=== PATIENT | male | born 1945 | race Caucasian/White ===

== ENCOUNTER 2018-09-12 10:07 | Inpatient (IN) ==
--- NOTE | 2018-08-24 12:00 | Anesthesiology Consultation ---
Date of Service August 24, 2018 Assessment & Plan (1) Encounter for pre-operative examination: Plan: - Check coags AM DOS (warfarin instructions per surgeon/prescriber) - Check BSG AM DOS - Hematology= 08/30/18= hx DVT/PE (2015)- on warfarin. Subsequent U/S noting non- occlusive, likely chronic LLE DVT. Aware of upcoming LUZ and patient given Lovenox bridging instructions. - PCP= 08/25/18= Patient sent to hematology for further evaluation. Lovenox bridging done. "If they [hematology] will bridge, that will be acceptable." Chart Review Chart Review: Acceptable Risk for Surgery and Patient seen in Pre Admission Testing Teaching & Discussion Pre-Anesthesia Teaching/Discussion Notes: Instructed NPO after midnight before surgery,except medications with 15 cc of water. Medication instructions provided according to the PAT guidelines. History Surgery Operation Date: 09/12/18 08:15 Proposed Procedures p Left Anterior Total Hip Arthroplasty - Bill Salamanca DO Height/Weight Height: 5 ft 10 in Weight: 92 kg Allergies Allergy/AdvReac Type Severity Reaction Status Date / Time No Known Allergies Allergy Verified 08/11/18 15:47 Medications Home Medications Medication Instructions Recorded Confirmed Last Taken C-Zn-K.ginseng-miller [id number] 1 tab PO QAM 08/11/18 08/11/18 Unknown [Immune Support Complex] insulin glargine [Lantus Solostar 14 unit SUBCUT QPM 08/11/18 08/11/18 Unknown U-100 Insulin] lactobacillus combination no.4 1 tab PO QAM 08/11/18 08/11/18 Unknown [Probiotic] metformin 500 mg PO QID 08/11/18 08/11/18 Unknown multivitamin with minerals 1 tab PO QAM 08/11/18 08/11/18 Unknown omega 3,6,9 combination no.7 1 tab PO QAM 08/11/18 08/11/18 Unknown rosuvastatin 5 mg PO QPM 08/11/18 08/11/18 Unknown warfarin 2.5 - 5 mg PO DAILY 08/11/18 08/11/18 Unknown Past Medical History Medical History DVT (deep venous thrombosis) 2016- ACUTE LLE DVT; NOW WITH LIKELY CHRONIC LLE DVT- ON WARFARIN Diabetes mellitus, type 2 NIDDM Osteoarthritis Pulmonary embolism 2016- ON WARFARIN Past Surgical History Surgical History Cancer BCC S/P EXCISION(FACE/ARM) History of cholecystectomy History of tonsillectomy History of tooth extraction WISDOM TEETH History of total hip arthroplasty RIGHT Past Anesthesia History No Hx of Anesthesia Complications and No Family Hx of Anesthesia Complications History of PONV No Motion Sickness Screening History of Motion Sickness: No Social History Smoking Status: Former smoker Do You Dip or Chew Tobacco: No Smoking End Date: QUIT 35+ YEARS AGO; HX 1 PPD X 15 YEARS Hx Alcohol Use: Yes Alcohol type: beer alcohol intake frequency: a few times a month Hx Substance Use: No Exercise / Class Metabolic Activity II 4-5 Yardwork/Stairs/Walk up hill Review of Systems Patient denies chest pain, shortness of breath, dyspnea on exertion, reflux, cough, wheezing, palpitations. Physical Exam Vital Signs VITALS BP 133/80 P 77 TEMP 98.0 SP02 94%RA RESP 18 PHYSICAL Full neck and c-spine range of motion. Full TMJ range of motion. TMD 4 finger breaths Mallampati Score 3 Dentition: missing molars, permanent implants on molars Lungs: clear throughout to auscultation Cardiac: regular rate and rhythm, no murmurs noted Spine: normal Carotid arteries: negative bruit Extremities: no edema Testing Electrocardiogram Date: 08/24/18 Findings: + NSR @ (68) Chest X-Ray Date: 08/24/18 Subtle peripheral opacity within left midlung zone, possibly artifactual. This is of doubtful acute clinical significance. A three-month follow-up chest x-ray is recommended (PCP made aware/report sent for their review) Echocardiogram Date: 12/15/15 EF 58%. No RWMA. Borderline LVH. Aortic sclerosis. Laboratory Results 08/24/18 12:35 08/24/18 12:35 Blood Type O Positive 08/24/18 12:35 Antibody Screen NEGATIVE 08/24/18 12:35 PT 18.4 Seconds (9.0-12.0) H 08/24/18 12:35 INR 1.9 (0.9-1.1) H 08/24/18 12:35 APTT 32.3 Seconds (21.0-31.0) H 08/24/18 12:35 Hemoglobin A1c 7.3 % (4.5-5.6) H 08/24/18 12:35 Urine Color Yellow 08/24/18 12:35 Urine Appearance Clear (Clear) 08/24/18 12:35 Urine pH 5.0 (4.5-7.5) 08/24/18 12:35 Ur Specific [place] 1.022 (1.000-1.030) 08/24/18 12:35 Urine Protein Negative (Negative) 08/24/18 12:35 Urine Glucose (UA) Negative (Negative) 08/24/18 12:35 Urine Ketones Negative (Negative) 08/24/18 12:35 Urine Nitrite Negative (Negative) 08/24/18 12:35 Ur Leukocyte Esterase Negative (Negative) 08/24/18 12:35 Urine WBC (Auto) 1-5 /hpf (0-5) 08/24/18 12:35 Urine RBC (Auto) 0-4 /hpf (0-4) 08/24/18 12:35 U Hyaline Cast (Auto) 0 /lpf (0-5) 08/24/18 12:35 U Epithel Cells (Auto) 0-5 /lpf (0-5) 08/24/18 12:35 Urine Bacteria (Auto) Negative (Negative) 08/24/18 12:35 08/24/18 12:35 Urine Culture - Final Urine,Clean Catch No growth - less than 1,000 colonies/mL.
--- NOTE | 2018-08-24 12:02 | PAT Medication Instructions ---
Medication Instructions Date of Service August 24, 2018 Home Medications C-Zn-K.ginseng-miller [id number] 1 tab PO QAM insulin glargine [Lantus Solostar 14 unit SUBCUT QPM lactobacillus combination no.4 1 tab PO QAM metformin 500 mg PO QID multivitamin with minerals 1 tab PO QAM omega 3,6,9 combination no.7 1 tab PO QAM rosuvastatin 5 mg PO QPM warfarin 2.5 - 5 mg PO DAILY ASK your prescriber and surgeon warfarin 2.5 - 5 mg PO DAILY STOP taking 2 weeks before surgery (or as soon as possible if surgery is within 2 weeks) C-Zn-K.ginseng-miller [id number] 1 tab PO QAM omega 3,6,9 combination no.7 1 tab PO QAM DO NOT take the morning of surgery lactobacillus combination no.4 1 tab PO QAM metformin 500 mg PO QID multivitamin with minerals 1 tab PO QAM Take evening before surgery insulin glargine [Lantus Solostar 14 unit SUBCUT QPM metformin 500 mg PO QID rosuvastatin 5 mg PO QPM Other Notes If you have any questions please call us at [phone] or [phone] or [phone] or [phone]
[2018-08-24 12:55] LABS: Basophils # (auto) 0.02 K/uL (0-0.2); Basophils % (auto) 0.3 %; Eosinophils # (auto) 0.06 K/uL (0-0.5); Eosinophils % (auto) 0.8 %; Hematocrit (blood only) 43.9 % (42-52); Hemoglobin 15.1 g/dL (14.0-18.0); Immature Granulocytes # (auto) 0.02 K/uL (0.00-0.02); Immature Granulocytes % (auto) 0.3 %; Lymphocytes % (auto) 27.8 %; Mean Corpuscular Hgb Conc 34.4 g/dL (32-36); Mean Corpuscular Volume 87.5 fL (80-100); Mean Platelet Volume 10.1 fL (7.4-10.4); Monocytes # (auto) 0.54 K/uL (0.11-0.59); Monocytes % (auto) 6.8 %; Neutrophils # (auto) 5.06 K/uL (1.4-6.5); Platelet Count 260 K/uL (130-400); RDW Coefficient of Variation 13.6 % (11.5-14.5); RDW Standard Deviation 43.1 fL (36.4-46.3); Red Blood Count 5.02 M/uL (4.7-6.1)
[2018-08-24 13:03] LABS: INR 1.9 (0.9-1.1); Partial Thromboplastin Ratio 1.2; Partial Thromboplastin Time 32.3 Seconds (21.0-31.0); Prothrombin Time 18.4 Seconds (9.0-12.0)
[2018-08-24 13:04] LABS: Appearance Urine Clear (Clear); Bacteria Urine Automated Negative (Negative); Bilirubin Urine Negative (Negative); Blood Urine Trace (Negative); Cast Urine Automated 0 /lpf (0-5); Color Urine Yellow; Epithelial Cell Urine Auto 0-5 /lpf (0-5); Glucose Urine UA Negative (Negative); Ketones Urine Negative (Negative); Leukocyte Esterase Urine Negative (Negative); Nitrite Urine Negative (Negative); Protein Urine Negative (Negative); RBC Urine Automated 0-4 /hpf (0-4); Specific Gravity Urine 1.022 (1.000-1.030); Urobilinogen Urine Negative (Negative)
--- NOTE | 2018-08-24 13:04 | XRay Report ---
XR chest Pre-admission PA/Lat CLINICAL HISTORY: Preoperative chest COMPARISON STUDY: No previous studies for comparison. FINDINGS: The cardiac and mediastinal contours are normal. There is no evidence of focal pulmonary co nsolidation. There is no evidence of failure. No pleural effusions are visualized.[ A vague feeding o pacity within the left midlung zone laterally, is likely extrapleural or artifact from overlying soft tissues. This is of doubtful acute clinical significance. IMPRESSION: Subtle peripheral opacity within left midlung zone, possibly artifactual. This is of doub tful acute clinical significance. A three-month follow-up chest x-ray is recommended. Electronically signed by: Wale Ross M.D. 08/24/2018 1:03 PM
[2018-08-24 13:20] LABS: Estimated Average Glucose 163 mg/dl; Hemoglobin A1C 7.3 % (4.5-5.6)
[2018-08-24 14:32] LABS: Albumin Level 3.7 gm/dl (3.4-5.0); Calcium 8.9 mg/dl (8.5-10.1); Creatinine Clr Calc Pharmacy 83.1 ml/min; Est GFR (African American) 95.4; Est GFR (Non-African American) 82.3; Potassium 4.4 mmol/L (3.5-5.1)
--- NOTE | 2018-09-11 22:43 | History & Physical Report ---
Date of Service September 11, 2018 Assessment & Plan (1) Degenerative joint disease (DJD) of hip: I have indicated the patient for left anterior total hip replacement. The risks, benefits and complications of surgery were explained to the patient which include but not limited to infection, acute blood loss, DVT/PE, injury to nerves, vessels, bone, soft tissue, arthrofibrosis, chronic pain, failure of the prosthesis, hip dislocation, leg length discrepancy, need for additional surgery, cardiac and pulmonary events and . The patient wished to proceed with surgery and informed consent was obtained at this time. We will plan for bridging lovenox to coumadin with a goal INR 2.0-2.5 post-operatively for DVT prophylaxis. Upon discharge the patient will be discharged home with home health services. Appropriate clearances by PCP were obtained. History of Present Illness Chief Complaint: Left hip pain/DJD Primary Care Provider: Meet Dubon The patient is a 73 year old male who presents with complaints of severe left hip pain and DJD. The patient has failed outpatient conservative treatments to this point which included NSAIDs, IA corticosteroid injection, home exercise/walking program. The patient's pain and limited function have progressed to the point where they severely hinder their activities of daily living and they no longer tolerate exercise programs. They are requesting to proceed with total hip replacement surgery. Allergies Allergy/AdvReac Type Severity Reaction Status Date / Time No Known Allergies Allergy Verified 09/12/18 10:38 Home Medications Home Medications Medication Instructions Recorded Confirmed Type C-Zn-K.ginseng-miller hips-[id number] 1 tab PO QAM 08/11/18 09/12/18 History [Immune Support Complex] insulin glargine [Lantus Solostar 14 unit SUBCUT QPM 08/11/18 09/12/18 History U-100 Insulin] lactobacillus combination no.4 1 tab PO QAM 08/11/18 09/12/18 History [Probiotic] metformin 500 mg PO QID 08/11/18 09/12/18 History multivitamin with minerals 1 tab PO QAM 08/11/18 09/12/18 History omega 3,6,9 combination no.7 1 tab PO QAM 08/11/18 09/12/18 History rosuvastatin 5 mg PO QPM 08/11/18 09/12/18 History warfarin 2.5 - 5 mg PO DAILY 08/11/18 09/12/18 History enoxaparin [Lovenox] 90 mg SUBCUT Q12H 09/12/18 09/12/18 History Past Med/Surg History Medical History DVT (deep venous thrombosis) 2016- ACUTE LLE DVT; NOW WITH LIKELY CHRONIC LLE DVT- ON WARFARIN Diabetes mellitus, type 2 NIDDM Osteoarthritis Pulmonary embolism 2016- ON WARFARIN Surgical History Cancer BCC S/P EXCISION(FACE/ARM) History of cholecystectomy History of tonsillectomy History of tooth extraction WISDOM TEETH History of total hip arthroplasty RIGHT Social History Preferred Language: [place] Communication Ability: Effective Crime Scene Photographer Required: No Beliefs That Will Affect Care: None Current Living Situation: Spouse Other Information That Helps Us Care for You: No Feels Safe at Home: Yes Safety Concerns: Feels Safe At This Time Smoking Status: Former smoker Hx Alcohol Use: Yes Hx Substance Use: No Review of Systems All systems reviewed & are unremarkable except as noted in HPI & below Physical Exam Physical Exam: LLE NVSI +EHL/FHL/TA/GS SILT grossly, +2 DP pulse, compartments soft NT, painful limited ROM Constitutional: WD/WN, vitals as above Eyes: PERRL, conjunctivae normal, anicteric sclerae ENMT: external ear and nose normal, oropharynx normal Neck: trachea midline, no thyromegaly Respiratory: normal respiratory effort, lungs clear to auscultation Cardiovascular: RRR, no murmur, no edema Gastrointestinal (Abdomen): normal bowel sounds, soft, nontender, no hepatosplenomegaly Musculoskeletal: no cyanosis or clubbing, extremities motor strength 5/5 Skin: no rashes, warm and dry Neurologic: patellar DTR's 2+ bilat, sensation intact Psychiatric: A+Ox3, euthymic affect Lymphatic: no cervical or axillary lymphadenopathy Results & Data Diagnostic Findings Multiple views of the hip demonstrates severe DJD with complete loss of the joint space. +osteophytes, +sclerosis, +subchondral cysts.
[~2018-09-12 10:07] MED LIST: ACETAMINOPHEN 500 MG TAB PO SCH; BUPIVACAINE 0.5 % 5 MG/1 ML PF 10ML VIAL ONE; CEFAZOLIN 2000MG 2,000 MG/15 ML SYR IV SCH; CeleBREX 200 MG CAP PO SCH; FAMOTIDINE 20 MG TAB PO SCH; LR 500ML BOLUS, THEN 15ML/HR IV SCH; METOCLOPRAMIDE HCL 10 MG TABLET PO SCH; ROPIVACAINE 0.5% HCL/PF 150 MG, BUPIVACAINE 0.5% MPF 30 ML, EPINEPHrine 30MG/30ML (OR U... INFIL SCH; TRANEXAMIC ACID 1,000 MG **IV Intra-op IV SCH; TRANEXAMIC ACID 1,000 MG **IV Pre-op IV SCH; dexAMETHasone 4 MG TAB PO SCH
[2018-09-12 11:01] LABS: Partial Thromboplastin Time 26.5 Seconds (21.0-31.0); Prothrombin Time 10.5 Seconds (9.0-12.0)
[2018-09-12] MEDS ORDERED: ePHEDrine sulfate 50 MG/ML AMP IV PRN (11:12)
[2018-09-12] MEDS ORDERED: ONDANSETRON INJ 2 MG/ML 2 ML VIAL IV PRN ×2 (11:12→19:02)
[2018-09-12] MEDS ORDERED: fentaNYL citrate 100 MCG/2 ML VIAL IV PRN (11:12)
[2018-09-12] MEDS ORDERED: ATROPINE SULFATE 0.1 MG/ML 10ML SYR IV PRN (11:12)
[2018-09-12] MEDS ORDERED: PROMETHAZINE HCL 6.25 MG in SODIUM CHLORIDE 0.9% 50 ML IV PRN (11:12)
[2018-09-12] MEDS ORDERED: MIDAZOLAM HCL 1 MG/ML 2ML VIAL ONE (11:31)
--- NOTE | 2018-09-12 12:08 | History & Physical Bridge Note ---
Date of Service September 12, 2018 History & Physical Bridge Note I have examined the patient, reviewed the History & Physical and in the interval since the performance of the History & Physical I have noted the following changes of clinical significance: no changes noted
[2018-09-12] MEDS ORDERED: BACITRACIN INJ 50,000 UNIT VIAL ONE (13:14)
[2018-09-12] MEDS ORDERED: ORTHO JOINT ANESTHETIC ONE (13:14)
[2018-09-12] MEDS ORDERED: POVIDONE-IODINE OP SOLN 30 ML BTL ONE (13:14)
[2018-09-12] MEDS ORDERED: KETAMINE HCL INJ 50 MG/ML 10 ML VIAL ONE (15:07)
[2018-09-12] MEDS ORDERED: ONDANSETRON INJ 2 MG/ML 2 ML VIAL ONE (15:08)
[2018-09-12] MEDS ORDERED: GLYCOPYRROLATE 0.2 MG/ML VIAL ONE (15:08)
[2018-09-12] MEDS ORDERED: PROPOFOL IV EMULSION 10 MG/ML 20 ML VIAL IV ONE ×3 (15:08→17:33)
[2018-09-12] MEDS ORDERED: DEXAMETHASONE SOD INJ 4 MG/ML VIAL ONE (15:08)
[2018-09-12] MEDS ORDERED: LIDOCAINE HCL 2% 2 ML VIAL/AMP(20MG/ML) INFIL ONE (15:08)
--- NOTE | 2018-09-12 17:52 | Post Operative Brief Note ---
Immediate Post Op Note v1 Date of Surgery September 12, 2018 Pre & Post Diagnosis Operation Date: 09/12/18 12:25 Pre-Op Diagnosis: Left Hip Osteoarthritis Post-Op Diagnosis: Left Hip Osteoarthritis Procedure Operation Date: 09/12/18 12:25 Actual Procedures p Left Anterior Total Hip Arthroplasty(Left) - Bill Salamanca DO Surgeon Bill Salamanca DO Aviation Maintenance Instructor Akira Blank Estimated Blood Loss 180 Findings Consistent with Post-Op Diagnosis Fluids 1200 cc Specimens femoral head Drains Hemovac Drain Anesthesia Type Spinal MAC Complications none Disposition Disposition: Recovery Room Overlapping Procedure I was present for: the critical portions of procedure. I was immediately available: during the entire case. Back up surgeon: was not required during procedure.
--- NOTE | 2018-09-12 18:24 | Operative Report ---
Post Operative Report Pre & Post Diagnosis Operation Date: 09/12/18 12:25 Pre-Op Diagnosis: Left Hip Osteoarthritis Post-Op Diagnosis: Left Hip Osteoarthritis Procedure Operation Date: 09/12/18 12:25 Actual Procedures p Left Anterior Total Hip Arthroplasty(Left) - Bill Salamanca DO Surgeon Bill Salamanca DO Fairing Man Akira Blank Estimated Blood Loss 180 Findings Consistent with Post-Op Diagnosis Fluids 1200 cc Specimens Femoral head Anesthesia Type Spinal MAC Complications none Disposition Disposition: Recovery Room Indications The patient is a 73-year-old male who presents with severe progressive left hip DJD who has failed outpatient conservative treatments. I indicated the patient for a anterior total hip replacement and the risks and benefits were explained in detail which include but not limited to infection, bleeding, blood clot, damage to surrounding bone, nerves, vessels, soft tissue, hip dislocation, failure of the prosthesis, leg length discrepancy, need for additional surgery and . The patient agreed to proceed with replacement of the hip and informed consent was obtained. Appropriate clearances were obtained. Description of Procedure COMPONENTS USED: [employer]angel [employer] NephRatherGathe[employer] hip system: Acetabulum size 52, femur size 8 high offset, femoral head 36-3, liner 36 x 52, acetabular screw 25 mm. DESCRIPTION OF PROCEDURE: Following satisfactory spinal anesthesia, the patient was placed supine on the OR table. The right leg was placed in the well leg george and the left leg in the traction device. The left leg was prepared with ChloraPrep and draped sterilely. Following a surgical time-out, an anterior approach in the interval between the sartorius and tensor muscles was completed. Circumflex femoral vessels were identified, tied and ligated. The anterior capsular fat pad was removed and the capsulotomy was performed revealing the arthritic femoral neck and head. A femoral neck cut was made with reciprocating saw and the bone fragments removed. The acetabular self-retraining retractor was placed. Acetabular reaming was completed under fluoroscopic guidance, a 52 shell was impacted into an anatomic position and secured with a dome screw. Local anesthetic was placed and following irrigation, the polyethylene liner was placed. The femur was placed into position of external rotation, extension and adduction. Femoral canal was prepared up to the size 8 high offset. Trial reduction with a -3 neck length head showed good soft tissue tension, leg lengths restored, and good fit and fill of the proximal canal using fluoroscopic landmarks. The hip was dislocated. The trial component was removed. The final implant was placed. The hip was irrigated with sterile saline solution and reduced. A Betadine soak was performed. After 3 minutes, the hip was once more irrigated with copious sterile saline solution with bacitracin. Mary Lou-incisional soft tissue was injected utilizing [place] Orthomix which includes a combination of Ropivicaine 0.5% 150mg, Bupivicaine 0.5%/Epinephrine 1:200,000 30ml, Toradol 30mg, Dexamethasone 4mg, Ketamine 10mg, Clonidine 100mcg and NSS 30ml solution. The capsule was then closed with 1-0 Vicryl interrupted figure of eight sutures. The fascia was closed with a running suture of 0 - V-loc, the subcutaneous tissues with 2-0 Vicryl and the skin with a running subcuticular stitch of 3-0 V-Loc. Dermabond prineo and a dry dressing, Prevena incisional vac were applied. The patient tolerated the procedure well and was transported to PACU in stable condition. Due to the complex nature of the procedure, the entire surgery was performed with the operational assistance of Akira Blank PA-C. The compliance assistant, under direct supervision, was involved in the actual performance of all aspects of the surgical procedure including patient positioning, hemostasis, tissue retraction, instrument management and wound closure. I attest to the content of the Intraoperative Record and any orders documented therein. Any exceptions are noted below.
[2018-09-12] MEDS ORDERED: METOCLOPRAMIDE HCL INJ 5 MG/ML 2 ML VIAL IV PRN (19:02)
[2018-09-12] MEDS ORDERED: BISACODYL 10 MG SUPP PR PRN (19:02)
[2018-09-12] MEDS ORDERED: MAGNESIUM HYDROXIDE SUSP 30 ML UDC PO PRN (19:02)
[2018-09-12] MEDS ORDERED: NALOXONE HCL 0.4 MG/1 ML VIAL/CARP IV PRN (19:02)
[2018-09-12] MEDS ORDERED: HYDROmorphone INJ 0.5 MG/0.5 ML SYR IV PRN (19:02)
--- NOTE | 2018-09-12 19:02 | Anesthesiology Progress Note ---
Date of Service September 12, 2018 Anesthesia Post Procedure Vital Signs Vital Signs: Temp Pulse Pulse Resp BP BP Pulse Ox 09/12/18 18:45 36.5 C 63 17 117/65 98 09/12/18 18:35 36.5 C 71 17 113/70 95 09/12/18 18:25 78 17 120/70 99 09/12/18 18:16 36.2 C L 83 16 110/69 94 09/12/18 15:17 80 16 128/55 L 96 09/12/18 10:48 36.8 C 76 22 158/85 H 94 Pain Intensity Left Hip: Pain Intensity: 0 Notes Mental Status: alert / awake / arousable Patient Amnestic to Procedure: Yes Nausea / Vomiting: adequately controlled Pain: adequately controlled Airway Patency, RR, SpO2: stable & adequate BP & HR: stable & adequate Hydration State: stable & adequate Neuraxial Anesthesia: was administered and sensory block is resolving Anesthetic Complications: no major complications apparent and Pt Satisfied with anesthetic care
--- NOTE | 2018-09-12 19:08 | XRay Report ---
SINGLE VIEW PELVIS; SINGLE VIEW LEFT HIP CLINICAL HISTORY: Postoperative examination. FINDINGS: An AP portable view of the hips and pelvis with a crosstable lateral portable view of the l eft hip are obtained. A bipolar left hip arthroplasty is in near-anatomic alignment. A single cortica l lag screw transfixes the acetabular cup. No acute fracture is identified. There are expected postop erative changes overlying the left hip including subcutaneous gas, a surgical drain, and soft tissue swelling. A bipolar arthroplasty is also seen in the right hip. Advanced atherosclerotic calcificatio n is noted in the femoral arteries. IMPRESSION: Expected postoperative findings status post left hip arthroplasty. No acute fracture is s een. Electronically signed by: Tyson Hathaway M.D. 09/12/2018 7:07 PM
--- NOTE | 2018-09-12 19:11 | Fluoroscopy Report ---
INTRAOPERATIVE RADIOGRAPHS CLINICAL HISTORY: Left hip arthroplasty. Fluoroscopy time: 93 seconds. FINDINGS: 2 spot fluoroscopic views from a left hip arthroplasty procedure are presented. A bipolar l eft hip arthroplasty has been placed and is in near anatomic alignment. There is no evidence of fract ure on these fluoroscopic views. A right hip arthroplasty is also noted. IMPRESSION: Intraoperative images from a left hip arthroplasty procedure as above. Electronically signed by: Tyson Hathaway M.D. 09/12/2018 7:10 PM
--- NOTE | 2018-09-12 19:39 | Orthopedic Progress Note ---
Date of Service September 12, 2018 Assessment & Plan (1) Degenerative joint disease (DJD) of hip: s/p L anterior LUZ -ancef x 24 -DVT ppx - patient with chronic LLE DVT - bridge lovenox --> coumadin, goal INR 2.0-2.5, SCD RLE/TEDS -WBAT LLE -PT/OT -Glycemic mgnt consult -PO XR demonstrates well aligned well fixed orthopedic prosthesis without fracture/dislocation -am labs -DC planning Home with Subjective Post Operative Progress Note Patient seen in PACU in bed, comfortable, denies complaints, pain well controlled, no acute issues. +spinal anesthesia Physical Exam Vital Signs (Past 24 Hours): Last Vital Signs Temp 36.4 C L 09/12/18 19:32 Pulse 61 09/12/18 19:32 Resp 16 09/12/18 19:32 BP 127/69 09/12/18 19:32 Pulse Ox 96 09/12/18 19:32 Physical Exam: Limited secondary to spinal anesthesia, +2 DP pulse, compar tments soft NT, dressing CDI Constitutional: WD/WN, vitals as above Eyes: PERRL, conjunctivae normal, anicteric sclerae ENMT: external ear and nose normal, oropharynx normal Neck: trachea midline, no thyromegaly Respiratory: normal respiratory effort, lungs clear to auscultation Cardiovascular: RRR, no murmur, no edema Gastrointestinal (Abdomen): normal bowel sounds, soft, nontender, no hepatosplenomegaly Skin: no rashes, warm and dry Psychiatric: A+Ox3, euthymic affect Lymphatic: no cervical or axillary lymphadenopathy
[2018-09-12] MEDS ORDERED: PHARMACY GLYCEMIC MGMT CONSULT PRN (19:47)
[2018-09-12] MEDS: SODIUM CHLORIDE 0.9% 1000ML 1,000 ML IV SCH (20:50)
[2018-09-12] MEDS: ROSUVASTATIN CALCIUM 5 MG TAB PO SCH (20:51)
[2018-09-12] MEDS: DOCUSATE SODIUM 100 MG CAP PO SCH (20:51)
[2018-09-12] MEDS: SENNA 8.6 MG TAB PO SCH (20:51)
[2018-09-12] MEDS: ACETAMINOPHEN 500 MG TAB PO SCH (20:52)
[2018-09-12] MEDS ORDERED: METFORMIN HCL 500 MG TAB PO SCH (21:00)
[2018-09-12] MEDS ORDERED: INSULIN GLARGINE SOLOSTAR 100 UNITS/ML 3 ML PEN SQ SCH (21:30)
[2018-09-12] MEDS: INSULIN ASPART 100 UNITS/ML 3 ML PEN SC SCH ×2 (21:38→23:59)
[2018-09-12] MEDS: OXYCODONE HCL IR 5 MG TAB (IMMEDIATE RELEASE) PO PRN (21:42)
[2018-09-12] MEDS ORDERED: COUGH DROP (SUGAR FREE) LOZ 24 LOZ/1 BOX BUCCAL ONE (21:42)
[2018-09-12] MEDS ORDERED: COUGH DROP (SUGAR FREE) LOZ 24 LOZ/1 BOX BUCCAL PRN (21:47)
[2018-09-12] MEDS ORDERED: WARFARIN SOD 5 MG TAB PO ONE (22:00)
[2018-09-12] MEDS ORDERED: CEFAZOLIN 2000MG 2,000 MG/15 ML SYR IV SCH (22:00)
[2018-09-13] MEDS: OXYCODONE HCL IR 5 MG TAB (IMMEDIATE RELEASE) PO PRN ×4 (04:16→21:37)
[2018-09-13] MEDS: INSULIN ASPART 100 UNITS/ML 3 ML PEN SC SCH ×5 (04:19→21:28)
[2018-09-13] MEDS: ACETAMINOPHEN 500 MG TAB PO SCH ×3 (05:27→21:31)
[2018-09-13 05:56] LABS: Hematocrit (blood only) 36.2 % (42-52); Immature Granulocytes # (auto) 0.04 K/uL (0.00-0.02); Immature Granulocytes % (auto) 0.2 %; Lymphocytes # (auto) 1.26 K/uL (1.2-3.4); Lymphocytes % (auto) 7.7 %; Mean Corpuscular Hgb Conc 33.1 g/dL (32-36); Mean Corpuscular Volume 88.5 fL (80-100); Mean Platelet Volume 10.2 fL (7.4-10.4); Monocytes # (auto) 1.21 K/uL (0.11-0.59); Monocytes % (auto) 7.4 %; Neutrophils # (auto) 13.85 K/uL (1.4-6.5); Neutrophils % (auto) 84.7 %; Platelet Count 220 K/uL (130-400); RDW Coefficient of Variation 13.7 % (11.5-14.5); RDW Standard Deviation 43.9 fL (36.4-46.3); Red Blood Count 4.09 M/uL (4.7-6.1); White Blood Count 16.36 K/uL (4.8-10.8)
[2018-09-13 06:07] LABS: INR 1.1 (0.9-1.1); Prothrombin Time 11.4 Seconds (9.0-12.0)
[2018-09-13 06:28] LABS: BUN Creatinine Ratio 16.5 (10-20); Calcium 8.2 mg/dl (8.5-10.1); Creatinine Clr Calc Pharmacy 103.3 ml/min; Est GFR (Non-African American) 92.3; Potassium 3.9 mmol/L (3.5-5.1)
[2018-09-13] MEDS: DOCUSATE SODIUM 100 MG CAP PO SCH ×2 (08:18→20:31)
[2018-09-13] MEDS: MULTIVITAMIN TAB PO SCH (08:18)
--- NOTE | 2018-09-13 08:31 | Anesthesiology Progress Note ---
Date of Service September 13, 2018 Anesthesia Post Procedure Vital Signs Vital Signs: Temp Pulse Pulse Pulse Resp BP BP 09/13/18 07:30 36.4 C L 66 16 111/59 L 09/13/18 04:05 36.5 C 62 16 124/67 09/12/18 23:25 36.5 C 73 18 133/67 09/12/18 22:00 36.7 C 64 16 129/71 09/12/18 21:00 36.4 C L 88 16 134/74 09/12/18 20:00 36.5 C 74 16 135/78 09/12/18 19:32 36.4 C L 61 16 127/69 09/12/18 19:00 36.4 C L 64 16 129/76 09/12/18 18:45 36.5 C 63 17 117/65 09/12/18 18:35 36.5 C 71 17 113/70 09/12/18 18:25 78 17 120/70 09/12/18 18:16 36.2 C L 83 16 110/69 09/12/18 15:17 80 16 128/55 L 09/12/18 10:48 36.8 C 76 22 158/85 H Pulse Ox 09/13/18 07:30 95 09/13/18 04:05 96 09/12/18 23:25 94 09/12/18 22:00 92 09/12/18 21:00 92 09/12/18 20:00 98 09/12/18 19:32 96 09/12/18 19:00 94 09/12/18 18:45 98 09/12/18 18:35 95 09/12/18 18:25 99 09/12/18 18:16 94 09/12/18 15:17 96 09/12/18 10:48 94 Pain Intensity Left Hip: Pain Intensity: 0 Notes Mental Status: alert / awake / arousable and participated in evaluation Patient Amnestic to Procedure: Yes Nausea / Vomiting: adequately controlled Pain: adequately controlled Airway Patency, RR, SpO2: stable & adequate BP & HR: stable & adequate Hydration State: stable & adequate Neuraxial Anesthesia: was administered and sensory block resolved Anesthetic Complications: no major complications apparent and Pt Satisfied with anesthetic care
--- NOTE | 2018-09-13 08:53 | Orthopedic Progress Note ---
Date of Service September 13, 2018 Assessment & Plan (1) Degenerative joint disease (DJD) of hip: s/p L anterior LUZ POD#1 -ancef x 24 -DVT ppx - patient with chronic LLE DVT - bridge lovenox 90 --> coumadin, goal INR 2.0-2.5, SCD RLE/TEDS -INR 1.1 -WBAT LLE -PT/OT -Glycemic mgnt consult -PO XR demonstrates well aligned well fixed orthopedic prosthesis without fracture/dislocation -am labs - hgb 12.0, post op anemia secondary to surgical blood loss and dilution effect. Patient asymptomatic, continue to monitor. -DC planning Home with HH Subjective Post Operative Progress Note Patient seen in a.m. laying in bed, comfortable, denies complaints, pain well controlled, no acute issues overnight. Denies CP, SOB, N/V/D, lightheaded or dizziness. Physical Exam Vital Signs (Past 24 Hours): Last Vital Signs Temp 36.4 C L 09/13/18 07:30 Pulse 66 09/13/18 07:30 Resp 16 09/13/18 07:30 BP 111/59 L 09/13/18 07:30 Pulse Ox 95 09/13/18 07:30 Physical Exam: LLE NVSI +EHL/FHL/TA/GS SILT grossly, +2 DP pulse, compartments soft NT, dressing cdi.
[2018-09-13] MEDS: ENOXAPARIN 100 MG/1ML SYR SQ SCH ×2 (09:05→20:30)
--- NOTE | 2018-09-13 10:40 | Pharmacy Report ---
Glycemic Control Consultation - Date of Service September 13, 2018 - Scope Scope: Glycemic Pharmacist consulted by Dr Salamanca on 3-5 for glycemic control and to write orders per [facility] inpatient glycemic control protocol - Objective Weight: 92.7 kg Accuchecks BSG (last 24hrs): 09/12/18 09/12/18 09/12/18 10:36 18:23 20:59 Glucose POC Glucose 142 H 177 H 188 H 09/12/18 09/13/18 09/13/18 23:55 04:09 05:23 Glucose 153 H POC Glucose 187 H 144 H 09/13/18 08:17 Glucose POC Glucose 155 H Laboratory Data (last 24hrs): 09/13/18 05:23 Potassium 3.9 Carbon Dioxide 27 Anion Gap 8.0 Creatinine 0.75 Est Cr Clr Drug Dosing 103.3 HbA1c: Hemoglobin A1c 7.3 % (4.5-5.6) H 08/24/18 12:35 - Recent Pertinent Medications Outpatient Anti-diabetic Regimen: * Lantus 14 units Q PM, metformin 1000 mg XR BID (confirmed metformin dosing with outpatient records) * A1c = 7.3 % [7.3] Risk Factors for Insulin Resistance: * Steroids: DXM 8 mg po preop, 4 mg IV, ortho injection * Recent Surgery: s/p L LUZ * Diet: T2DM - Assessment & Plan Assessment & Plan: ASSESSMENT: * 73 year old male now s/p L LUZ. PMH significant for osteoarthritis, DVT/PE - managed on warfarin at home. Type 2 diabetic on Lantus and metformin. Last A1C 7.3% in August of this year * Did receive steroids last evening in the OR - anticipate steroid induced hyperglycemia * Received Lantus 20 units x 1 last evening (higher dosing given likely due to steroids/dexamethasone) and started on correctional insulin * Fasting BSG this am slightly higher at 153 mg/dL - will add scale for Lantus dosing for this evening * Will initiate home metformin for tonight - therefore will loosen CF/CR because of this PLAN FOR INPATIENT GLYCEMIC CONTROL: * Pt is maintained on oral antidiabetic agents as an outpatient * okay to restart patient's home metformin at this time - renal function stable/no IV contrast received * verified dosing of metformin (had been listed on med rec incorrectly) * Basal insulin * Lantus HS - per scale - For BSG less than 120 mg/dL - give 12 units - For BSG 120-180 mg/dL - give 14 units - For BSG 180 or greater - give 16 units * Bolus insulin - loosen since restarting metformin * NovoLog per scale ACHS or Q6hrs while NPO * Goal Range: Low 110 mg/dL - High 140 mg/dL * Correction Factor: 25 mg/dL/unit * Nutritional / Prandial insulin per carb ratio of 1 unit per 8 grams CHO consumed * Please note that the plan above was derived based on current level of insulin resistance and hospital stress. These recommendations are appropriate for inpatient admission only. Plan of care upon discharge will need to be reassessed to avoid potential outpatient hypo/hyperglycemia. Thank you.
[2018-09-13] MEDS: SODIUM CHLORIDE 0.9% 1000ML 1,000 ML IV SCH (13:02)
[2018-09-13] MEDS ORDERED: CARBOHYDRATES FOR HYPOGLYCEMIA PO PRN (16:00)
[2018-09-13] MEDS ORDERED: DEXTROSE 50% 50 ML SYRINGE IV PRN (16:00)
[2018-09-13] MEDS ORDERED: GLUCOSE 40% GEL 15 GM TUBE PO PRN (16:00)
[2018-09-13] MEDS ORDERED: GLUCAGON FOR INJ 1 MG VIAL IM PRN (16:00)
[2018-09-13] MEDS ORDERED: WARFARIN SOD 5 MG TAB PO SCH (16:00)
[2018-09-13] MEDS ORDERED: GLUCOSE 10 TABS/TUBE PO PRN (16:00)
[2018-09-13] MEDS: METFORMIN HCL ER 500 MG TABCR PO SCH (18:02)
[2018-09-13] MEDS: ROSUVASTATIN CALCIUM 5 MG TAB PO SCH (20:31)
[2018-09-13] MEDS: SENNA 8.6 MG TAB PO SCH (20:31)
[2018-09-13] MEDS ORDERED: INSULIN GLARGINE SOLOSTAR 100 UNITS/ML 3 ML PEN SC SCH (21:00)
[2018-09-13 23:37] VITALS: O2SAT 93
[2018-09-14] MEDS: OXYCODONE HCL IR 5 MG TAB (IMMEDIATE RELEASE) PO PRN ×2 (03:41→08:57)
[2018-09-14] MEDS: ACETAMINOPHEN 500 MG TAB PO SCH (05:28)
[2018-09-14 07:01] VITALS: BP 136/75; TEMP 98.2
[2018-09-14 07:29] LABS: Basophils # (auto) 0.01 K/uL (0-0.2); Basophils % (auto) 0.1 %; Eosinophils # (auto) 0.04 K/uL (0-0.5); Eosinophils % (auto) 0.3 %; Hemoglobin 11.3 g/dL (14.0-18.0); Immature Granulocytes # (auto) 0.03 K/uL (0.00-0.02); Immature Granulocytes % (auto) 0.2 %; Lymphocytes # (auto) 3.14 K/uL (1.2-3.4); Lymphocytes % (auto) 22.4 %; Mean Corpuscular Hgb Conc 33.2 g/dL (32-36); Mean Platelet Volume 10.7 fL (7.4-10.4); Monocytes # (auto) 1.29 K/uL (0.11-0.59); Monocytes % (auto) 9.2 %; Neutrophils # (auto) 9.51 K/uL (1.4-6.5); Neutrophils % (auto) 67.8 %; Platelet Count 194 K/uL (130-400); RDW Coefficient of Variation 14.1 % (11.5-14.5); Red Blood Count 3.82 M/uL (4.7-6.1); White Blood Count 14.02 K/uL (4.8-10.8)
[2018-09-14 07:39] LABS: INR 1.2 (0.9-1.1); Prothrombin Time 12.4 Seconds (9.0-12.0)
[2018-09-14] MEDS: METFORMIN HCL ER 500 MG TABCR PO SCH (07:49)
[2018-09-14] MEDS: MULTIVITAMIN TAB PO SCH (07:50)
[2018-09-14] MEDS: ENOXAPARIN 100 MG/1ML SYR SQ SCH (07:50)
[2018-09-14] MEDS: DOCUSATE SODIUM 100 MG CAP PO SCH (07:50)
[2018-09-14] MEDS: INSULIN ASPART 100 UNITS/ML 3 ML PEN SC SCH (07:53)
[2018-09-14 07:59] LABS: BUN Creatinine Ratio 17.8 (10-20); Calcium 8.2 mg/dl (8.5-10.1); Creatinine Clr Calc Pharmacy 103.3 ml/min; Est GFR (Non-African American) 92.3; Potassium 3.6 mmol/L (3.5-5.1)
--- NOTE | 2018-09-14 08:34 | Orthopedic Progress Note ---
Date of Service September 14, 2018 Assessment & Plan (1) Degenerative joint disease (DJD) of hip: s/p L anterior LUZ POD#2 -ancef x 24 -DVT ppx - patient with chronic LLE DVT - bridge lovenox 90 --> coumadin, goal INR 2.0-2.5, SCD RLE/TEDS -INR 1.2 -WBAT LLE -PT/OT -Glycemic mgnt consult -PO XR demonstrates well aligned well fixed orthopedic prosthesis without fracture/dislocation -am labs - hgb 11.3, post op anemia secondary to surgical blood loss and dilution effect. Patient asymptomatic, continue to monitor. -DC planning Home today with HH. POD#1 -ancef x 24 -DVT ppx - patient with chronic LLE DVT - bridge lovenox 90 --> coumadin, goal INR 2.0-2.5, SCD RLE/TEDS -INR 1.1 -WBAT LLE -PT/OT -Glycemic mgnt consult -PO XR demonstrates well aligned well fixed orthopedic prosthesis without fracture/dislocation -am labs - hgb 12.0, post op anemia secondary to surgical blood loss and dilution effect. Patient asymptomatic, continue to monitor. -DC planning Home with HH Subjective Post Operative Progress Note Patient seen in a.m. sitting in chair at bedside, comfortable, denies complaints, pain well controlled, no acute issues overnight. Denies CP, SOB, N/V/D, lightheaded or dizziness. Physical Exam Vital Signs (Past 24 Hours): Last Vital Signs Temp 36.8 C 09/14/18 06:59 Pulse 77 09/14/18 06:59 Resp 16 09/14/18 06:59 BP 136/75 09/14/18 06:59 Pulse Ox 93 09/14/18 06:59 Physical Exam: LLE NVSI +EHL/FHL/TA/GS SILT grossly, +2 DP pulse, compartments soft NT, dressing cdi.
[2018-09-14 09:30] VITALS: PULSE 64
--- NOTE | 2018-09-14 17:41 | Discharge Summary ---
Date of Service September 14, 2018 Admission HPI Per Admitting Provider The patient is a 73 year old male who presents with complaints of severe left hip pain and DJD. The patient has failed outpatient conservative treatments to this point which included NSAIDs, IA corticosteroid injection, home exercise/walking program. The patient's pain and limited function have progressed to the point where they severely hinder their activities of daily living and they no longer tolerate exercise programs. They are requesting to proceed with total hip replacement surgery. Principal Diagnosis Left anterior hip replacement Discharge Exam LLE NVSI +EHL/FHL/TA/GS SILT grossly, +2 DP pulse, compartments soft NT, dressing cdi. Discharge Data Allergies Allergy/AdvReac Type Severity Reaction Status Date / Time No Known Allergies Allergy Verified 09/12/18 10:38 Consultations 09/13/18 08:00 Consult Case Management - Discharge Planning Routine Procedures Performed Operation Date: 09/12/18 12:25 Actual Procedures p Left Anterior Total Hip Arthroplasty(Left) - Bill Salamanca DO Ordered Studies 09/12/18 12:25 FL fluoroscopy <1hr Routine FL hip LT 1V Routine Hospital Course (1) Degenerative joint disease (DJD) of hip: The patient is a 73 -year-old male who presents with long standing history of severe left hip DJD and failed outpatient conservative treatments including NSAIDs, bracing, injections and home walking/exercise program. The patient's symptoms have progressed to the point where it has been difficult to perform even normal activities of daily living. I indicated the patient for a left anterior total hip arthroplasty, the risks, benefits and complications of the procedure include but not limited to infection, bleeding, damage to bone, nerves, vessels, surrounding soft tissue, may develop blood clots, loss of function, leg length discrepancy, dislocation, failure of the components, loosening of the components, the need for additional surgery and . The patient wished to proceed with surgery at this time and informed consent was obtained. Hospital Course: On 09/12/18 the patient was taken to the operating room, adequate anesthesia administered and underwent a left anterior total hip arthroplasty. The patient tolerated the procedure well and was taken to the PACU in stable condition. Post-operatively the patient was started on Lovenox bridge to home dose of Coum letitia medication and given appropriate IV antibiotics. Consults were placed to pharmacy glycemic mgnt, physical therapy, occupational therapy and case management. On POD#1, the patient did well overnight and their pain was well controlled. Labs were drawn and the Hgb was 12.0, INR 1.1. The patient progressed well with PT. Dressings were clean, dry and intact. On POD#2, the patient continued to progress with PT, pain well controlled, VSS. Labs were drawn, hgb 11.3, INR 1.2. The patients hospital stay was relatively uneventful and they were deemed stable by the orthopedic team and consultants to be discharged home with HH on 09/14/18. Discharge Instructions: Upon discharge the patient may weight bear as tolerates through their operative extremity. They were instructed to keep the incision clean and dry at all times. The patient may shower but should not submerge the incision, avoid bathing, pools and hot tubes. The patient was given a script for pain medication and should take as instructed. The patient was given a script for Theraputic lovenox per heme consultation pre-operatively while bridging to his home dose of Coumadin and should take as directed. Goal INR 2.0-2.5. A script was given for outpatient INR lab draw and the patient was informed to follow up with his PCP for any adjustments to his Lovenox bridge and home Coumadin dose. The patient was instructed to not drive or travel for long distances until cleared to do so. If the patient develops any symptoms of fevers, chills, nausea, vomiting, increased redness, swelling, pain or drainage from the ridley rgical site, they should notify the office and/or proceed to the nearest emergency room. The patient should follow up in 10-14 days after surgery for their routine post-operative follow-up appointment and should call the office to confirm the date and time. s/p L anterior LUZ POD#2 -ancef x 24 -DVT ppx - patient with chronic LLE DVT - bridge lovenox 90 --> coumadin, goal INR 2.0-2.5, SCD RLE/TEDS -INR 1.2 -WBAT LLE -PT/OT -Glycemic mgnt consult -PO XR demonstrates well aligned well fixed orthopedic prosthesis without fracture/dislocation -am labs - hgb 11.3, post op anemia secondary to surgical blood loss and dilution effect. Patient asymptomatic, continue to monitor. -DC planning Home today with HH. POD#1 -ancef x 24 -DVT ppx - patient with chronic LLE DVT - bridge lovenox 90 --> coumadin, goal INR 2.0-2.5, SCD RLE/TEDS -INR 1.1 -WBAT LLE -PT/OT -Glycemic mgnt consult -PO XR demonstrates well aligned well fixed orthopedic prosthesis without fracture/dislocation -am labs - hgb 12.0, post op anemia secondary to surgical blood loss and dilution effect. Patient asymptomatic, continue to monitor. -DC planning Home with HH Total Time Total Time Spent Total Time Spent (In Minutes): >60 minutes Discharge Plan Discharge Items Patient Disposition: Home - Home Health Services Reason For Visit: Left Hip Osteoarthritis Discharge Diagnosis: Left anterior total hip replacement Condition: Good Discharge Goals: Decrease discomfort, Improve function, Increase independence, Specific goals and Therapeutic intervention Activity: Per 'Additional Instructions' section Lifting: Wait until after follow-up appointment Bathing Comment: No bathing, pools or hot tubs Sexual Activity: Wait until after follow-up appointment Exercise/Sports: Wait until after follow-up appointment Driving/Machine Use Comment: No driving till cleared by your surgeon Weightbearing: Left weightbearing Non-emergency contact: Primary Care Provider and Surgeon Call non-emergency contact if: you have any medication questions, your symptoms worsen, your pain is not controlled, your pain is worsening, your pain is unusual for you, your pain is concerning for you, you have a fever, your temperature is above 101, your wound has increased redness, your wound has increased drainage and your wound pain has increased Follow-up/Referrals: Meet Dubon [Primary Care Provider] - Diet: Carb Consistent or DM2 Other Ambulatory Orders: Prothrombin Time INR (Timed) Timeframe: 3 Days Location: Determined by Patient Ordered By: Bill Hernandes Provider Instructions: ACTIVITY RECOMMENDATIONS: SELF CARE INSTRUCTIONS AFTER TOTAL HIP REPLACEMENT : Direct Anterior Approach Until the incision and soft tissues around your hip have healed, there is a possibility that the hip prosthesis could dislocate. A. Hip flexion ( Up & Down out of chair or steps ) may be difficult. This is normal. B. Numbness in front of the thigh is also normal for a few weeks. C. Use hand rails when walking on stairs. D. Wear low heeled shoes with non-slip soles. E. Be sure that your floors are free of things that could trip you - throw rugs, electrical cords, small objects. Avoid wet and waxed floors, especially with crutches and canes. F. Try to walk several times a day with rest periods between. G. Continue with all the exercises taught to you in the hospital. Again, make walking a part of your daily routine. SPECIAL CARE INSTRUCTIONS: VERY IMPORTANT TO READ AND REVIEW A. You may still be at risk for phlebitis and blood clots. 1. Wear surgical stockings (CASTRO hose) for 2 weeks after surgery to improve circulation and reduce swelling. 2. Take Lovenox 90mg twice daily and your home Coumadin or as directed by your doctor. This is your blood thinner. Once your INR reaches a goal of 2.0-2.5 you may discontinue your Lovenox. 3. High risk patients may be prescribed a stronger blood thinner if necessary. 4. If you are on Coumadin normally, your family doctor/infantry senior sergeant should monitor your blood work. Expect a phone call the day of or the day after bloodwork is drawn to adjust your dosage. B. You must take antibiotics before having dental work, bladder, bowel and other surgery. Your doctor will provide you with a permanent card to carry describing precautions. C. Call [facility] if you have a fever, redness or swelling around the incision, cloudy drainage from incision, or sudden increase in pain in your hip, not relieved by your regular pain medication. D. Please call the office at if you have any concerns or questions about your operation or recovery. * YOU MAY SHOWER, NO TUB BATHS UNTIL CLEARED BY YOUR DOCTOR. - Keep an extra close eye on the top portion of your incision. Be sure to keep clean & dry. * WEAR CASTRO HOSE 20 HOURS PER DAY FOR 2 WEEKS. * YOU MAY PROGRESS FROM A WALKER, TO A CANE, TO INDEPENDENT AT YOUR OWN PACE. * MOST PATIENTS WILL HAVE HOME NURSING FOR THERAPY. IF YOU DECIDE TO DO OUTPATIENT PHYSICAL THERAPY, PLEASE SCHEDULE THIS 3 TIMES PER WEEK. * DERMABOND Prineo- This is a mesh tape dressing that is covered with glue. It should remain in place until the incision is properly healed, usually 10-14 days. This dressing is designed to naturally slough off. You may trim the excess mesh tape as it peels off. Incision may be briefly wet in a shower. Dry immediately by blotting with a clean, dry towel. Do not bath or swim until instructed by your doctor. Do not scratch, rub, or pick at the dressing. Do not apply any topical ointments or lotions until dressing is completely removed and/or instructed by your doctor. There may be a small piece of suture material at one end of your incision. Do not pull or trim this. If it is bothersome or catching on clothing, you may cover it with a band-aid. *Prevena incisional vac is a special dressing covering your incision. This dressing provides a sterile dry environment while you are healing. The dressing is to be left in place for 7 days post-operatively. Your home nurse or surgeon will remove. If you develop any redness or blisters or have any questions notify your surgeon immediately. FOLLOW UP VISIT: If appointment is not already scheduled: Please call [facility] to make a follow-up appointment for 2 weeks after your surgery at . Please follow up with your PCP, Dr. Dubon within 7 days after discharge, you will need to obtain and follow up your PT/INR labs to determine adjustments to your Lovenox and Coumadin. Prescriptions: New acetaminophen [Pain Reliever] 500 mg Tablet 1,000 mg PO Q8 PRN (Reason: pain) Qty: 90 RF: 0 oxycodone 5 mg Tablet 5 mg PO Q6H MDD 6 tabs PRN (Reason: pain) Qty: 30 RF: 0 sennosides [Senokot] 8.6 mg Tablet 17.2 mg PO HS PRN (Reason: constipation) Qty: 28 RF: 0 enoxaparin 100 mg/mL Syringe 90 mg subcut Q12H Qty: 14 RF: 0 Continued warfarin 2.5 mg Tablet 2.5 - 5 mg PO DAILY RF: 0 rosuvastatin 5 mg Tablet 5 mg PO QPM RF: 0 Lantus Solostar U-100 Insulin 100 unit/mL (3 mL) Insulin Pen 14 unit SUBCUT QPM RF: 0 multivitamin with minerals Tablet 1 tab PO QAM RF: 0 Immune Support Complex 75 mg Tablet 1 tab PO QAM RF: 0 Probiotic 3 billion cell Capsule 1 tab PO QAM RF: 0 omega 3,6,9 combination no.7 92 mg (43 mg-22 [id number]) Tablet,Chewable 1 tab PO QAM RF: 0 metformin 500 mg Tablet Extended Release 24 Hr 1,000 mg PO BID RF: 0 Discontinued enoxaparin [Lovenox] 100 mg/mL Syringe 90 mg SUBCUT Q12H RF: 0 Stand-Alone Forms: [employer], Opioid Pain Management [employer]/Other Patient Handouts: Hyperglycemia, Hypoglycemia Discharge Orders: Discharge Order (Routine); Ordered 09/14/18 Ordered By: Bill Salamanca Admission Data Admit Date/Time: 09/12/18 18:28 Attending Provider: Bill Salamanca Admit Provider: Bill Salamanca Primary Care Provider: Meet Dubon Service: Surgical Services Other Interventions: Discharge Summary Assessment (RN) Last Done: 09/14/18 09:22 DC Date/Time DO NOT enter until pt leaves facility: 09/14/18 12:15
== END 2018-09-14 12:15 | disposition home health service (06) | DRG 470 ==
LOC: ASU 10:07 → 3E 18:28